=== PATIENT | female | born 1960 | race Caucasian/White ===

== ENCOUNTER 2022-10-04 12:19 | Day surgery (SDC) | payer BC ==
[~2022-10-04] VITALS: Ht 160 cm; Wt 108.2 kg
--- NOTE | ~2022-10-04 | OR ---
[facility] [address] [place], [place] [address] Draft DATE OF OPERATION: 10/04/2022 SURGEON: Mynor Hogan MD PREOPERATIVE DIAGNOSES: 1. Episodic diarrhea, constipation. 2. History of sigmoid resection in 2007 for diverticular disease. POSTOPERATIVE DIAGNOSES: 1. Scattered diverticula. 2. No evidence of colitis. PROCEDURES: Total colonoscopy to cecum with biopsy of rectum and cecum. ANESTHESIA: Intravenous sedation; fentanyl 100 mcg and Versed 5 mg. INDICATIONS: This 62-year-old white woman is a patient of Emily Martel PA-C. She is well known to me from the past. She underwent colonoscopy by me in 2007 noting diverticulosis and recurrent diverticulitis and underwent sigmoid resection in 2007. She currently has episodes of constipation alternating with diarrhea. She has no blood per rectum. She has no family history of colon cancer. She is admitted at this time to undergo colonoscopy, understands the risks of bleeding, infection, and perforation. FINDINGS: Prep was excellent. Complete colonoscopy was undertaken of the cecum without question. The cecum and rectum appeared normal. The biopsies were obtained to rule out occult colitis. She had scattered diverticula throughout the colon. The resected portion of the sigmoid and its anastomosis was widely patent. There was no evidence of stricture. DESCRIPTION OF PROCEDURE: The patient was brought to the endoscopy suite and placed in lateral decubitus position given intravenous sedation to the point of slurred speech and nystagmus. Digital rectal examination was normal. Full cardiopulmonary pulmonary monitoring was maintained during the course of colonoscopy. An Olympus video colonoscope was passed into the rectum and manipulated throughout the colon, ultimately intubating the cecum itself that appeared normal. Passage to the coloproctostomy anastomotic site was without problem. Biopsies were taken of the cecum to rule out occult colitis, so it appeared normal. The scope PATIENT NAME: DILSHAD ENGEL OPERATIVE REPORT DATE OF : 56 REPORT #: [id number] PHYSICIAN: MYNOR HOGAN MD PCP: EMILY MARTEL PA-C REPORT IS CONFIDENTIAL AND NOT TO BE RELEASED WITHOUT AUTHORIZATION [facility] [address] [place] [id number] Draft was withdrawn. Examination showed only scattered diverticula throughout the colon. The anastomosis once again evaluated showed no sign of polyp, stricture, or other problem. Biopsies were then taken of the rectum, again appearing normal. The scope was removed, and the patient taken to the recovery room in good condition. 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 PLAN: We would recommend Citrucel one scoop p.o. daily. I am happy to see her again should the need arise. Further consideration for low-FODMAP diet would be a consideration if she is not improved with the aforementioned approach. MD MAIN Krause/SAGRARIO /[id number] cc: Emily Martel PA-C Copies: EMILY MARTEL PA-C ~ PATIENT NAME: DILSHAD ENGEL OPERATIVE REPORT DATE OF : 56 REPORT #: [id number] PHYSICIAN: MYNOR HOGAN MD PCP: EMILY MARTEL PA-C REPORT IS CONFIDENTIAL AND NOT TO BE RELEASED WITHOUT AUTHORIZATION
[~2022-10-04 12:19] MED LIST: ALLEGRA ALLERGY60 MG PO; EFFEXOR XR75 MG PO; GENTAMICIN SULFA5 ML OS; IBUPROFEN600 MG PO; LOVASTATIN20 MG PO; MELOXICAM15 MG PO; NEXIUM20 MG PO; NORCO 10-325 T1 EACH PO; PREVACID30 MG PO; PRILOSEC OTC20 MG PO; SUDAFED30 MG PO; SYNTHROID125 MCG PO; TOPROL XL25 MG PO
[2022-10-04] MEDS ORDERED: LISINOPRIL20 MG PO (12:53)
--- NOTE | 2022-10-04 14:29 | NUR ---
10/04/22 1423 Leti Coffey 1424-PATIENT ARRIVED TO PACU ON 2L NC RR EVEN. PATIENT LAYING LEFT LATERAL DROWSY AROUSES TO VERBAL STIMULI DENIES PAIN OR NAUSEA. ABDOMEN SOFT. IVF INFUSING. PATIENT ORIENTED TO PACU AND DOZES BACK TO SLEEP.
--- NOTE | 2022-10-06 15:11 | PATH ---
[facility] [address] [facility] [place], [place] [address] Signed SPECIMEN(S): A CECAL BIOPSY SPECIMEN(S): B RECTAL BIOPSY SPECIMEN SOURCE: A. CECAL BIOPSY B. RECTAL BIOPSY CLINICAL HISTORY: Diarrhea, constipation, diverticular disease. Post: Diverticulosis. FINAL PATHOLOGIC DIAGNOSIS: A. Cecal biopsy: - Benign colonic mucosa, negative for pathologic inflammation. B. Rectal biopsy: - Benign colonic mucosa, negative for atypical epithelial features or pathologic inflammation. JVR:[facility]:C2NR MICROSCOPIC EXAMINATION: Histologic sections of all submitted blocks are examined by light microscopy. These findings, together with the gross examination, support the pathologic diagnosis. GROSS DESCRIPTION: Two specimens are received in two containers, labeled "LS." A. The specimen, labeled "LS, cecum biopsy," is received in formalin and consists of three macias soft tissue fragments that measure 0.2-0.4 cm in greatest dimension. The specimen is entirely submitted in cassette (A1). B. The specimen, labeled "LS, rectum biopsy," is received in formalin and consists of four macias soft tissue fragments that measure 0.2 cm in greatest dimension. The specimen is entirely submitted in cassette (B1). VB (under the direct supervision of a pathologist) The Gross Description was prepared using a voice recognition system. The report was reviewed for accuracy; however, sound-alike word errors, addition and/or deletions may occur. If there is any question about this report, please contact Client Services. PERFORMING LABORATORY: The technical component was performed by [employer], Keri Ko, PATIENT NAME: DILSHAD ENGEL PATHOLOGY DATE OF : 56 REPORT #: [id number] PHYSICIAN: IRENE MARQUEZ PCP: CATALINA STINSON PA-C REPORT IS CONFIDENTIAL AND NOT TO BE RELEASED WITHOUT AUTHORIZATION [address] [place], [place] [address] [place] [address] (CLIA# [id number]). Professional interpretation was performed by [facility] - [address] [address] (CLIA#: [id number]). Diagnostician: Donavon Matthew MD Pathologist Electronically Signed 10/06/2022 Copies: ~ PATIENT NAME: DILSHAD ENGEL PATHOLOGY DATE OF : 56 REPORT #: [id number] PHYSICIAN: IRENE MARQUEZ PCP: CATALINA STINSON PA-C REPORT IS CONFIDENTIAL AND NOT TO BE RELEASED WITHOUT AUTHORIZATION
== END 2022-10-04 15:10 | disposition home or self-care (01) ==
LOC: OPS 12:19 → DS 12:19 → OPS 15:10
PROVIDERS: ATTEND Surgery
PROC: 0DBP8ZX Excision of Rectum, Via Natural or Artificial Opening Endoscopic, Diagnostic (ICD-10-PCS; principal; 2022-10-04 12:00)
DX: K57.30 Diverticulosis of large intestine without perforation or abscess without bleeding (principal); K21.9 Gastro-esophageal reflux disease without esophagitis; K52.9 Noninfective gastroenteritis and colitis, unspecified; E03.9 Hypothyroidism, unspecified; K59.09 Other constipation; Z90.49 Acquired absence of other specified parts of digestive tract
CPT/HCPCS: G0500; J2250; J3010

== ENCOUNTER 2023-03-28 13:25 | Inpatient (IN) | payer BC ==
[~2023-03-28] VITALS: Ht 160 cm; Wt 102.4 kg
[~2023-03-28 13:25] MED LIST changes: +LISINOPRIL20 MG PO
[2023-03-28] MEDS ORDERED: SUDAFED PE HEA PO (13:51)
--- NOTE | 2023-03-28 17:25 | EKG ---
[facility] [address] [facility] [place] [address] Signed Normal sinus rhythm Minimal voltage criteria for LVH, may be normal variant ( R in aVL ) Borderline ECG When compared with ECG of 02-JAN-2017 09:34, premature ventricular complexes are no longer present Confirmed by Jeff Leong MD () on 03/28/2023 5:25:12 PM Electronically Signed By: JEFF LEONG MD 03/28/23 1725 PATIENT NAME: DILSHAD ENGEL DUC Electrocardiogram DATE OF : 56 PHYSICIAN: JEFF LEONG MD REPORT #: [id number] REPORT IS CONFIDENTIAL AND NOT TO BE RELEASED WITHOUT AUTHORIZATION
[2023-03-28 19:46] VITALS: BP 181/67
--- NOTE | 2023-03-28 20:06 | NUR ---
PT TO FLOOR WITH ED RN VIA STRETCHER. BEDSIDE REPORT RECEIVED. PT ALERT AND ORIENTED. ABLE TO TRANSFER SELF TO BR AND BACK TO BED. GAIT STEADY. REPORTS SHE FEELS OFF BALANCE AND LEGS FEEL HEAVY. VS AND WEIGHT OBTAINED. TELE PLACED PER ORDER. SANDWICH BOX AND WATER PROVIDED. 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
--- NOTE | 2023-03-28 20:16 | NUR ---
pt ARRIVES TO MS VIA STRETCHER. AMBULATORY TO RESTROOM, SBA. pt COMPLAINS OF SOME "DIZZINESS WITH AMBULATION". DAUGHTER LEATHA IN ROOM. WILL TAKE HOME PATIENTS HOME MEDICATIONS WITH HER. ADMISSION COMPLETE. SANDWICH BOX PROVIDED. CALL LIGHT AND PERSONAL SUPPLIES IN REACH. pt VERBALIZES UNDERSTANDING TO USE CALL LIGHT BEFORE GETTING OUT OF BED. TELE [address], SR.
[2023-03-28 20:56] VITALS: BP 153/68
--- NOTE | 2023-03-28 21:13 | NUR ---
ADMISSION ASSESSMENT COMPLETE. PRN TYLENOL ADMIN FOR HEAD DISCOMFORT. PT REPORTS FEELING "STUFFY" IN SINUS AREA. NEURO CHECK DONE. SENIOR CARE PROVIDER STRENGTH EQUAL BILAT. MO DENIES VISUAL DISTURBANCES. PT REPORTS N/T IMPROVING IN BLE. BP REASSESSED, WNL. TELE #[address] HR 50-60'S. WARM BLANKET PROVIDED. PT DENIES QUESTIONS OR CONCERNS. CALL LIGHT IN REACH.
--- NOTE | 2023-03-28 23:22 | NUR ---
PT RESTING IN BED WITH EYES CLOSED. RESPIRATIONS EVEN. CALL LIGHT IN REACH.
[2023-03-29 02:09] VITALS: BP 139/88
--- NOTE | 2023-03-29 02:23 | NUR ---
PT RESTING WITH EYES CLOSED. AWAKENS EASILY TO VOICE. VS AND I&O OBTAINED. PT UP TO BR WITH MINIMAL SBA TO VOID. GAIT STEADY. PT REPORTS HER BALANCE IS STILL "A LITTLE WEIRD" BUT HER "LEGS DONE FEEL LIKE TOYS ANYMORE." SENSATION INTACT BLE. PT REPORTS "HEAD HAS CLEARED." SCD'S IN PLACE. PT DENIES FURTHER NEEDS. CALL LIGHT IN REACH.
--- NOTE | 2023-03-29 04:20 | NUR ---
PT RESTING IN BED WITH EYES CLOSED. RESPIRATIONS EVEN. TELE #3. SR. HR 60'S.
[2023-03-29 05:33] VITALS: BP 151/83
--- NOTE | 2023-03-29 05:35 | NUR ---
LAB IN FOR MORNING DRAW. VS OBTAINED. PT REPORTS SX RESOLVED EXCEPT FOR FEELING "WOBBLY" WHILE WALKING. NEURO CHECK WNL. MRI SCREENING FORM COMPLETED. PT DENIES FURTHER NEEDS. CALL LIGHT IN REACH.
--- NOTE | 2023-03-29 07:02 | NUR ---
PT BACK FROM MRI. TELE IN PLACE. UP TO BR TO VOID. STATES GAIT "FEELS BOXY" PT STEADY ON FEET. AT SINK FOR AM CARES. BACK TO BED. SCD'S IN PLACE. VISITOR TO ROOM.
--- NOTE | 2023-03-29 07:16 | NUR ---
REPORT RECEIVED FROM VOUCHER CLERK RN, ALL QUESTIONS ANSWERED. PT AWAKE IN BED, VISITING WITH FRIEND. PT DENIES NEEDS AT THIS TIME. CALL LIGHT IN REACH.
--- NOTE | 2023-03-29 07:31 | NUR ---
INFORMED DR LEONG OF MRI RESULTS, NO NEW ORDERS RECEIVED AT THIS TIME.
--- NOTE | 2023-03-29 08:17 | NUR ---
PT RESTING IN BED, RESPIRATIONS EVEN AND UNLABORED. CALL LIGHT IN REACH.
--- NOTE | 2023-03-29 09:12 | NUR ---
MORNING ASSESSMENT COMPLETE. PT RESTING IN BED, AWAKENS EASILY. NEURO CHECK COMPLETE. NO DEFICITS NOTED. PT STATES "SHUFFLING" AND UNCOORDINATED WITH AMBULATION. PHYSICAL THERAPY IN ROOM. PT DENIES FURTHER NEEDS AT THIS TIME. CALL LIGHT IN REACH.
[2023-03-29 10:12] VITALS: BP 159/70
--- NOTE | 2023-03-29 12:36 | NUR ---
SPOKE TO PATIENT ABOUT THE DISCHARGE PLAN. PATIENT IS TEARY EYED DURING THE CONVERSATION. 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 PATIENT STATES HER SON AND DAUGHTER WILL TAKE CARE OF HER MOTHER. PATIENT IS ABLE TO PREFORM HER OWN ADLS. PATIENT DOES NOT HAVE DME, BUT AGREES SHE MAY NEED DME IN THE FUTURE. PATIENT STATES SHE FEELS JUST A LITTLE OFF BALANCE. PATIENT WILL STAY ANOTHER 1-2 DAYS TO WORK WITH PT/OT. PATIENT DRIVES BUT SON WILL HELP TRANSPORT. PATIENT HAS A DAUGHTER THAT LIVES IN [place] WHO WILL ALSO HELP NEEDED.PATIENT DOES NOT HAVE HX OF FALLING. PATIENT WANTS TO HOME TO HER HOUSE. PATIENT HAS NO PROBLEM PROVIDING HOUSING AND FOOD. NETWORK LEAD WILL WATCH CLOSELY FOR THE NEED TO CHANGE THE DC. PLAN. PATIENT DOES NOT WANT PLACEMENT.
[2023-03-29 13:22] VITALS: BP 155/96
[2023-03-29 17:25] VITALS: BP 165/92
--- NOTE | 2023-03-29 18:05 | NUR ---
Pt sitting up in recliner, pt denies needs at this time. Dinner at bedside. Family at bedside. Call light in reach.
--- NOTE | 2023-03-29 19:15 | NUR ---
Assesed pt, no concerns at the moment. Pt was watching a movie. Neuro's intact. Will monitor.
[2023-03-29 20:47] VITALS: BP 151/81
[2023-03-30 05:53] VITALS: BP 148/79
--- NOTE | 2023-03-30 06:00 | NUR ---
Pt did well overnight. Slightly worried about the situation with her health. IV was infliterated, and painfull, notified Dr. Martino and ok to leave IV out. Pt is anticipating to going home today. Waiting for medical clearance.
--- NOTE | 2023-03-30 07:26 | NUR ---
REPORT RECECIVED FROM CALEB MEJIA. PT UP TO CHAIR, WATCHING SHOWS ON TABLET. PT DENIES PAIN AND NAUSEA. PT DENIES DIZZINESS. NO REQUESTS OR COMPLAINTS AT THIS TIME. CALL LIGHT WITHIN REACH. TELEMETRY MONITORING CONTINUES WITH RATE IN THE 70'S.
--- NOTE | 2023-03-30 08:53 | NUR ---
Med rec completed.
--- NOTE | 2023-03-30 09:22 | NUR ---
MORNING ASSESSMENT AND MEDICATION DUE. THIS RN TO ROOM WITH DR. ORELLANA FOR ROUNDS. PT UPDATED ON PLAN OF CARE AND STATES HER QUESTIONS HAVE BEEN ANSWERED. NEW ORDERS GIVEN, ORDERS ENTERED, REPEAT BACK PERFORMED. PT ALERT AND OREINTED TO ALL. PT DENIES PAIN. PT REPORTS OCCATIONAL NAUSEA. DECLINES MEDICATIONS REPORTINGING "IT'S RAULITO NORMAL FOR ME BEFORE I HAVE A BOWEL MOVEMENT." JACKIE IN REPORT STATED HE TOOK OUT PTS IV RELATED TO INFLAMATION, NO IV IN PLACE AT THIS TIME, DC'D IN RECORD BY THIS RN. NEURO ASSESSMENT WNL, NIH SCORE OF 0. PT ABLE TO PUSH WITH GOOD STRENGTH AGAINST RESISTANC EIN ALL EXTREMITIES. HIGHER LEVEL COGNITIVE FUNCTION IN PLACE. NO SLURRED SPEACH HEARD. PT DENIES DIZZINESS. PT REPORTS MINOR SHUFFLEING OF FEET WITH AMBULATION, OTHERWISE STEADY ON FEET. PT REMAINS IN CHAIR AT THIS TIME. SHUFFELING GATE NOT OBSERVED. SINUS RYTHEM CONTINUES ON MONITOR WITH HEART RATE IN THE 70'S AT REST AND 90-100 WITH ACTIVITY. SCD'S NOT IN PLACE PT IS UP TO CHAIR AND AMBULATING. PTS DAUGTHER TO BEDSIDE AND UPDATED ON PLAN OF CARE. PT DENIES ADDITIONAL REQUESTS OR COMPLAINTS. CALL LIGHT WITHIN REACH.
--- NOTE | 2023-03-30 09:40 | NUR ---
IN TO SEE PATIENT. PATIENT SITTING UP IN CHAIR AND MARIA TERESA RN IN THE ROOM. PATIENT CONFIRMS SHE WILL BE DISCHARGING TODAY. CONFIRMED THAT PATIENT WOULD LIKE REFERRAL FROM HER PCP SENT TO [facility] FOR FOLLOW UP. PATIENT STATES THAT DR. TUTTLE IS OUT ON VACATION, BUT STATED THAT DR. ALICEA MAY BE WILLING TO START THE REFERRAL IN HER ABSENCE. PATIENT STATES AFTER SPEAKING WITH DR. ORELLANA SHE WILL ALSO NEED A HOLTER MONITOR PLACED. EMAIL SENT TO LAVON MORIN AT [facility] TO ASSIST WITH REFERRAL AND HOLTER REFERRALS.
[2023-03-30] MEDS ORDERED: CRESTOR40 MG PO (09:50)
[2023-03-30] MEDS ORDERED: ASPIRIN REGIMEN81 MG PO (09:50)
--- NOTE | 2023-03-30 10:26 | NUR ---
PT WORKIGN WITH OCCUPATIONAL THERAPY, HEART RATE NOTED TO INCREASE TO 140-150'S. THIS RN TO ROOM, PT UP TO SHOWER. PT BACK TO CHAIR AND ENCOUARGED TO REST. HEART RATE IMPROVES TO 90-100'S. NORMAL SINUS RYTHEM CONTINUES ON MONITOR. DR. ORELLANA UPDATED. PT DENIES PAIN, NAUSEA, OR DIZZINESS. NO ADDITIONAL REQUESTS OR COMPLAINTS. CALL LIGHT WITHIN REACH. BED RAILS UP.
[2023-03-30 10:35] VITALS: BP 148/79
[2023-03-30 11:01] VITALS: BP 150/96
--- NOTE | 2023-03-30 11:04 | NUR ---
PT READY FOR DISCHRAGE. DISCHARGE PACKET REVEIWED WITH PT. PT VERBALIZES UNDERSTANDING OF MEDICATIONS, FOLLOW UP, AND HOLTER MONITOR CARE. PT DRESSED INDEPENDANTLY, NO ASSISTANCE NEEDED. VITALS SIGNS STABLE. NO ADDITONAL REQUESTS OR CONCERNS. RT TO BEDSIDE TO APPLY HOLTER MONITOR UNDER OUTPATIENT ACCOUNT. PT WHEELED FROM MED/SURG WITH ALL BELONGINGS. NO ADDITIONAL REQUSTS.
== END 2023-03-30 11:30 | disposition home or self-care (01) | DRG 66 ==
LOC: ED 13:25 → MS 13:27
PROVIDERS: ADMIT Family Medicine; ATTEND Internal Medicine
DX: I63.9 Cerebral infarction, unspecified (principal); E03.9 Hypothyroidism, unspecified; I10 Essential (primary) hypertension; E78.1 Pure hyperglyceridemia; I48.91 Unspecified atrial fibrillation; Z88.0 Allergy status to penicillin; Z88.1 Allergy status to other antibiotic agents; Z88.2 Allergy status to sulfonamides; Z88.8 Allergy status to other drugs, medicaments and biological substances; Z87.891 Personal history of nicotine dependence; Z79.890 Hormone replacement therapy; Z90.710 Acquired absence of both cervix and uterus; Z98.890 Other specified postprocedural states; Z79.82 Long term (current) use of aspirin; Z79.899 Other long term (current) drug therapy
CPT/HCPCS: 36415; 70450; 70496; 70498; 70551; 71045; 80053; 80061; 83036; 83735; 84100; 84443; 84484; 85025; 85610; 85730; 93005; 93010; 97163; 97167; 97530; 99285-25; A9270; G0378; Q9967

== ENCOUNTER 2024-10-10 08:40 | Day surgery (SDC) | payer BC ==
[~2024-10-10] VITALS: Ht 160 cm; Wt 95.0 kg
--- NOTE | ~2024-10-10 | OR ---
[facility] [address] [place], [place] [address] Draft DATE OF OPERATION: 10/10/2024 SURGEON: Mynor Hogan MD PREOPERATIVE DIAGNOSIS: Right carpal tunnel syndrome. POSTOPERATIVE DIAGNOSIS: Right carpal tunnel syndrome. PROCEDURE: Right carpal tunnel release. ACCESS LIAISON: Adi Hogan. ANESTHESIA: Right Cathy block and IV sedation; Rigo Miguel CRNA and local 3 mL of 0.25% Marcaine with epinephrine. 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 She has had progressive symptoms completely consistent with carpal tunnel syndrome, right side greater than left. She has typical symptoms of numbness and tingling, worse at night. The distribution of the median nerve. She has tried wrist splint which has been ineffective. She has not had a formal neurologic testing as she wishes to have definitive treatment in this time frame. The risk of bleeding, infection, failure to cure the problem, and other unforeseen complications have been reviewed with her regarding carpal tunnel release. She understands and wished to proceed. Additionally, she has had a right wrist ganglion aspiration by me a few weeks ago, which improved though did not completely resolve the ganglion problem. It will not be excised today, however. DESCRIPTION OF PROCEDURE: The patient was brought to the operating room, given a Cathy block type anesthetic in the right arm. Ancef 2 g was given intravenously. The right hand was well exsanguinated for the purpose of the Cathy block. The tourniquet was under pressure of 250 mmHg. Good exsanguination was noted. A rolled towel was placed behind the wrist and using the lead PATIENT NAME: DILSHAD ENGEL OPERATIVE REPORT DATE OF : 56 REPORT #: [id number] PHYSICIAN: MYNOR HOGAN MD PCP: CORY TUTTLE MD REPORT IS CONFIDENTIAL AND NOT TO BE RELEASED WITHOUT AUTHORIZATION [facility] [address] [place], [place] [address] Draft finger retractors the wrist well extended and well positioned. Using a marking pen, the site for incision was defined in the palmar surface. Incision was taken through the dermis with a 15 blade including the subcutaneous tissue identifying the palmaris longus. Sequential application of retractors was used to better expose this ultimately identifying the transverse carpal ligament. This was incised a short distance and a hemostat placed beneath it to protect the underlying median nerve. Dissection was taken distalward onto the palmar fat. Hemostat was withdrawn and placed more proximally in the transverse carpal ligament. This transected with a 15 blade more fully and ultimately the tenotomy scissors up to the distal wrist crease. Complete division of the ligament was accomplished without question. There was no evidence of a motor branch to the thenar eminence upon dissection. The underlying nerve appeared chronically inflamed without sign of hourglass deformity other similar issue. Irrigation was undertaken. A minimal amount of cautery was used on some palmar muscle. The skin was closed with interrupted 2-0 nylon suture. Xeroform dressing was applied as was a Flexicon wrap followed by a cock-up wrist splint and ultimately an Andrew wrap. Pressure was applied to the operative site and the tourniquet was withdrawn. Tourniquet time was 29 minutes. The arm was kept in an elevated position with pressure applied to it until rubor returned to the hand and then began to recede in a normal way. She was taken to recovery room in good condition having suffered no complications. Sponge, needle, and instrument counts reported as correct x3. MD MAIN Krause/SAGRARIO /[id number] cc: Dr. Adi Tuttle Copies: ~ PATIENT NAME: DILSHAD ENGEL OPERATIVE REPORT DATE OF : 56 REPORT #: [id number] PHYSICIAN: MYNOR HOGAN MD PCP: CORY TUTTLE MD REPORT IS CONFIDENTIAL AND NOT TO BE RELEASED WITHOUT AUTHORIZATION
[~2024-10-10 08:40] MED LIST changes: +ASPIRIN REGIMEN81 MG PO; +CEFAZOLIN SODIUM 2 GM/20 ML SYR IV SCH; +CRESTOR40 MG PO; +IBLOOD GLUCOSE TEST STRIP 1 EA TEST VI PRN; +LACTATED RINGER'S 1,000 ML IV SCH; +LIDOCAINE HCL 1% 5 ML SDV INJ ONE; +SUDAFED PE HEA PO; +VALACYCLOVIR1000 MG PO
[2024-10-10 08:58] VITALS: BP 139/85
--- NOTE | 2024-10-10 09:54 | NUR ---
VISITED DURING SPIRITUAL CARE ROUNDS. PT SUPPORTED BY [id number] IN ROOM. BOTH DENY IMMEDIATE NEEDS, NO OVERT SIGNS OF ANXIETY. DOCUMENT ADVISOR PROVIDED SUPPORTIVE PRESENCE, HOSPITALITY, PRAYER, FACILITATED INTERACTION WITH THERAPY ANIMAL. PT AND [id number] EXPRESSED GRATITUDE.
[2024-10-10] MEDS ORDERED: LIDOCAINE HCL 0.5% 50 ML SDV ONE (10:29)
[2024-10-10] MEDS ORDERED: ACETAMINOPHEN 1,000 MG/100 ML VIAL ONE (10:29)
[2024-10-10] MEDS ORDERED: ondansetron HCL 4 MG/2 ML VIAL ONE (10:29)
[2024-10-10] MEDS ORDERED: propofoL 200 MG/20 ML VIAL ONE (10:29)
[2024-10-10] MEDS ORDERED: MIDAZOLAM HCL 2 MG/2 ML VIAL ONE (10:29)
[2024-10-10] MEDS ORDERED: KETOROLAC TROMETHAMINE 30 MG/ML VIAL ONE (10:29)
[2024-10-10] MEDS ORDERED: NALOXONE HCL 0.4 MG SYR IV PRN ×2 (11:30→11:45)
[2024-10-10] MEDS ORDERED: fentaNYL citrate 50 MCG/ML SDV IV PRN (11:30)
[2024-10-10] MEDS ORDERED: HYDROmorphone HCL 1 MG/ML SYR IV PRN (11:30)
[2024-10-10] MEDS ORDERED: droPERidol 5 MG/2 ML VIAL IV PRN (11:30)
[2024-10-10] MEDS ORDERED: ondansetron HCL 4 MG/2 ML VIAL IV PRN (11:30)
[2024-10-10] MEDS ORDERED: PROCHLORPERAZINE EDISYLATE 10 MG/2 ML VIAL IV PRN (11:30)
[2024-10-10] MEDS ORDERED: IBLOOD GLUCOSE TEST STRIP 1 EA TEST VI PRN (11:30)
[2024-10-10] MEDS ORDERED: LEVOTHYROXINE125 MCG (11:40)
[2024-10-10] MEDS ORDERED: METOPROLOL SUCC25 MG (11:40)
[2024-10-10] MEDS ORDERED: MOTRIN IB200 MG PO (11:44)
[2024-10-10] MEDS ORDERED: PERCOCET 5-3251 EACH PO (11:44)
[2024-10-10] MEDS ORDERED: TYLENOL EXTRA500 MG PO (11:44)
--- NOTE | 2024-10-10 11:44 | NUR ---
10/10/24 1144 [place] 1127-PT ARRIVES TO PACU RESTING SEMI FOWLERS, PT A+O X4, VSS ON RA, RR EVEN AND UNLABORED. PT DENIES PAIN OR NAUSEA, RT WRIST ELEVATED ON PILLOW. 1140- AT BEDSIDE DISCUSSING PROCEDURE RESULTS AND PLAN OF CARE W/ PT, ALL QUESTIONS ANSWERED.
[2024-10-10] MEDS ORDERED: ACETAMINOPHEN 500 MG TAB PO PRN (11:45)
[2024-10-10] MEDS ORDERED: IBUPROFEN 600 MG TAB PO PRN (11:45)
[2024-10-10] MEDS ORDERED: OXYCODONE/APAP 7.5/325 TAB PO PRN (11:45)
[2024-10-10 12:16] VITALS: BP 124/77
== END 2024-10-10 12:08 | disposition home or self-care (01) ==
LOC: DS 08:40
PROVIDERS: ATTEND Surgery
PROC: 01N50ZZ Release Median Nerve, Open Approach (ICD-10-PCS; principal; 2024-10-10 10:00)
DX: G56.01 Carpal tunnel syndrome, right upper limb (principal); I10 Essential (primary) hypertension; K59.09 Other constipation; Z79.82 Long term (current) use of aspirin; Z79.899 Other long term (current) drug therapy; Z88.0 Allergy status to penicillin; Z88.1 Allergy status to other antibiotic agents; Z91.018 Allergy to other foods; Z90.710 Acquired absence of both cervix and uterus; Z90.49 Acquired absence of other specified parts of digestive tract
CPT/HCPCS: 01810; J0131; J0690; J1885; J2250; J2405; J2704; J7121